=== PATIENT | male | born 1960 | race Two or more races ===

== ENCOUNTER → 2024-12-09 | Outpatient (CLI) | payer BC, SELFPAY ==
--- NOTE | 2024-12-09 12:18 | XR_ITS ---
Examination: PA lateral chest 2 views TECHNIQUE: Upright PA lateral chest 2 views Exam date and time: February 06, 2025 1340 hours INDICATIONS: Patient fell 6 days ago with injury to the chest, chest pain FINDINGS: Normal heart size No pneumothorax Clavicles ribs thoracic vertebral bodies appear intact IMPRESSION: No pneumothorax pulmonary contusion or hemothorax
== END | disposition home or self-care (01) ==
PROVIDERS: PCP Nurse Practitioner Family; Referring Provider Nurse Practitioner Family; Visit Provider Nurse Practitioner Family
DX: S29.9XXA Unspecified injury of thorax, initial encounter (principal); X58.XXXA Exposure to other specified factors, initial encounter
CPT/HCPCS: 71046